=== PATIENT | female | born 1935 | race Two or more races ===

== ENCOUNTER → 2024-01-31 | Day surgery (SDC) | payer OTHER ==
[~2024-01-31] VITALS: Ht 154.9 cm; Wt 57.6 kg
[~2024-01-31] MED LIST: CIPROFLOXACIN 400MG/200ML 200 ML IV ONE; DexAMETHasone SOD PHOS 10MG/1ML VIAL INJ ONE; ESTR2TAB5 PO; FOLI-119 PO; HYDR-4491 OR; HYDR-4798 PO; HYDROmorphone HCL 2 MG/ML VL/or syr IV PRN; KETAMINE 50mg/ML 1ml syringe ONE; KETOROLAC TROMETH 30 MG/ML 1ML VIAL IV ONE; LIDOCAINE 1% INJ PF 5ML AMP ONE; LISI-285 PO; METH2.5T PO; METOCLOPRAMIDE HCL 5MG/ml INJ 2ml VIAL IV ONE; MIDAZOLAM HCL 2MG/2ML 2ml VIAL (1mg/ml) ONE; MORPHINE SULFATE INJ 2 MG/ml SYRG IV PRN; ONDANSETRON HCL 4 MG/2 ML VIAL ONE; PREG50CA PO; PROPOFOL 10 MG/ML 20 ML IV ONE; fentaNYL CITRATE 100 MCG/2 ML VL IV PRN; fentaNYL CITRATE 100 MCG/2 ML VL ONE
[2024-01-31 09:43] VITALS: TEMP 97.8; O2SAT 96
[2024-01-31 10:43] VITALS: BP 157/73; PULSE 78; RESP 12; O2SAT 96
== END | disposition home or self-care (01) ==
LOC: SUR 07:29
PROVIDERS: ATTEND Urology
DX: N36.42 Intrinsic sphincter deficiency (ISD) (principal); K21.9 Gastro-esophageal reflux disease without esophagitis; I10 Essential (primary) hypertension; J44.9 Chronic obstructive pulmonary disease, unspecified; M06.9 Rheumatoid arthritis, unspecified; Z98.890 Other specified postprocedural states; Z79.899 Other long term (current) drug therapy; Z90.710 Acquired absence of both cervix and uterus; Z86.2 Personal history of diseases of the blood and blood-forming organs and certain disorders involving the immune mechanism
CPT/HCPCS: 51715; 74018; J0744; J1100; J2250; J2405; J2704; J3010; L8606; 76000